=== PATIENT | male | born 2000 | race Hispanic/Latino ===

== ENCOUNTER 2022-12-05 16:53 | Inpatient (IN) | payer MEDICAID, SELFPAY ==
[~2022-12-05 16:53] MED LIST: Iopamidol-370 76% 500 ML MDV (1 ML CHARGE) ONE
[2022-12-05] MEDS ORDERED: Morphine 4 MG/ML VIAL ONE (17:19)
[2022-12-05] MEDS ORDERED: Ondansetron PF 4 MG/2 ML Vial ONE (17:19)
[2022-12-05 18:08] LABS: #Eosinphils 0.2 thou/uL (0.0-0.7); #Monocytes 0.7 thou/uL (0.11-0.59); #Neutrophils 8.6 thou/uL (1.40-6.50); %Basophils 0.4 % (0.0-1.0); %Eosinophils 1.6 % (0.0-10.0); %Lymphocytes 8.6 % (28.0-48.0); %Monocytes 6.9 % (0.0-4.0); %Neutrophils 81.6 % (31.0-61.0); Hematocrit 42.4 % (42.0-52.0); Hemoglobin 14.7 g/dL (14.0-18.0); Mean Corpuscular HGB CONC 34.7 g/dL (32.0-36.0); Mean Corpuscular Hemoglobin 30.8 pg (25.0-35.0); Mean Corpuscular Volume 88.9 fl (78.0-98.0); Mean Platelet Volume 9.5 fL (7.4-10.4); Platelet Count 318 10x3/uL (130-400); RBC Distribution Width 12.1 % (11.5-14.5); Red Blood Cell (RBC) Count 4.77 mill/uL (4.00-5.20); White Blood Cell (WBC) Count 10.6 10x3/uL (4.8-10.8)
[2022-12-05] MEDS ORDERED: Piperacillin/Tazobactam 4.5 GM VIAL ONE (18:11)
[2022-12-05] MEDS ORDERED: Ipratropium/Albuterol 3 ML NEB NEB PRN (18:29)
[2022-12-05] MEDS ORDERED: Ondansetron PF 4 MG/2 ML Vial IVP PRN (18:29)
[2022-12-05] MEDS ORDERED: Sodium Chloride 0.9% 1,000 ML IV SCH (18:30)
[2022-12-05 18:34] LABS: ALT (SGPT) 54 U/L (8-55); AST (SGOT) 32 U/L (5-34); Albumin 4.5 g/dL (3.5-5.0); Alkaline Phosphatase 109 U/L (50-130); Anion Gap 18 mmol/L (10-20); BUN (Urea Nitrogen) 12 mg/dL (8.9-20.6); Bilirubin, Total 0.8 mg/dL (0.2-1.2); Calc. Creatinine Clearance 0 mL/min (70-130); Calcium 9.9 mg/dL (7.8-10.44); Carbon Dioxide 24 mmol/L (22-29); Chloride 96 mmol/L (98-107); Estimated GFR 102; Globulin 4.1 g/dL (2.4-3.5); Glucose 85 mg/dL (70-105); Potassium 3.2 mmol/L (3.5-5.1); Protein, Total 8.6 g/dL (6.0-8.3); Sodium 135 mmol/L (136-145)
[2022-12-05] MEDS ORDERED: traMADol HCl 50 MG TAB PO PRN (18:34)
[2022-12-05 18:36] LABS: Bacteria/HPF None Seen HPF (None Seen); Bilirubin Negative (Negative); Blood, Urine Negative (Negative); CAUTI Indications for Culture Pelvic or flank pain; Clarity Clear (Clear); Glucose, Urine (Dipstick) 50 mg/dL (Negative); Ketone, Urine 80 mg/dL (Negative); Leukocyte Negative Leu/uL (Negative); Nitrite Negative (Negative); Protein, Urine (Dipstick) 30 mg/dL (Neg-Trace); RBC/HPF 0-3 HPF (0-3); Specific Gravity, Urine 1.048 (1.002-1.036); Squamous Epithelial 0-3 HPF (0-3); Urobilinogen Normal mg/dL (Less than 2)
[2022-12-05 18:37] LABS: Urine Culture Reflex No No
[2022-12-05] MEDS: Potassium Chloride 20 MEQ in Premix Bag 1 BAG IVPB SCH ×2 (20:33→23:31)
[2022-12-05] MEDS: Sodium Chloride 0.9% 1,000 ML IV SCH (20:33)
[2022-12-05] MEDS: Ketorolac Tromethamine 30 MG/ML VIAL IVP SCH (20:33)
[2022-12-05] MEDS: Famotidine/PF 20 mg/2ml Vial SLOW IVP SCH (20:34)
[2022-12-05 20:52] VITALS: BMI 29.8
[2022-12-05] MEDS: traMADol HCl 50 MG TAB PO SCH (23:36)
[2022-12-05] MEDS: Acetaminophen 500 MG TAB PO SCH (23:36)
[2022-12-05] MEDS: Piperacillin/Tazobactam 3.375 GM in Sodium Chloride 0.9% 100 ML IVPB SCH (23:36)
[2022-12-06] MEDS: Ketorolac Tromethamine 30 MG/ML VIAL IVP SCH ×4 (03:02→20:04)
[2022-12-06] MEDS: Acetaminophen 500 MG TAB PO SCH ×4 (05:13→23:35)
[2022-12-06] MEDS: traMADol HCl 50 MG TAB PO SCH ×4 (05:14→23:36)
[2022-12-06] MEDS: Piperacillin/Tazobactam 3.375 GM in Sodium Chloride 0.9% 100 ML IVPB SCH ×3 (05:36→21:25)
[2022-12-06 07:10] LABS: #Eosinphils 0.4 thou/uL (0.0-0.7); #Monocytes 0.6 thou/uL (0.11-0.59); #Neutrophils 5.6 thou/uL (1.40-6.50); %Basophils 0.5 % (0.0-1.0); %Eosinophils 4.5 % (0.0-10.0); %Lymphocytes 16.4 % (28.0-48.0); %Monocytes 7.7 % (0.0-4.0); %Neutrophils 69.5 % (31.0-61.0); Hematocrit 38.2 % (42.0-52.0); Hemoglobin 12.7 g/dL (14.0-18.0); Mean Corpuscular HGB CONC 33.2 g/dL (32.0-36.0); Mean Corpuscular Hemoglobin 30.7 pg (25.0-35.0); Mean Platelet Volume 9.4 fL (7.4-10.4); Platelet Count 295 10x3/uL (130-400); RBC Distribution Width 12.4 % (11.5-14.5); Red Blood Cell (RBC) Count 4.14 mill/uL (4.00-5.20)
[2022-12-06 07:25] LABS: Mean Corpuscular Volume 92.3 fl (78.0-98.0)
[2022-12-06 07:54] LABS: PTT 40.3 sec (22.9-36.1)
[2022-12-06 07:55] LABS: INR-International Normal Ratio 1.3; Prothrombin Time 16.3 sec (12.0-14.7)
[2022-12-06] MEDS: Famotidine/PF 20 mg/2ml Vial SLOW IVP SCH ×2 (09:16→20:03)
[2022-12-06] MEDS ORDERED: EPINEPHrine 1 MG/ML AMP ONE (11:52)
[2022-12-06] MEDS ORDERED: Bupivacaine 0.25% HCL 30 ML VIAL ONE (11:52)
[2022-12-06] MEDS ORDERED: SUGAMMADEX SODIUM 200 MG/2 ML VIAL ONE (12:02)
[2022-12-06] MEDS ORDERED: fentaNYL PF 100 MCG/2 ML SYRINGE ONE (12:02)
[2022-12-06] MEDS ORDERED: Sodium Chloride 0.9% 100 ML ONE (12:13)
[2022-12-06] MEDS ORDERED: Piperacillin/Tazobactam 3.375 GM VIAL ONE (12:13)
[2022-12-06] MEDS ORDERED: Rocuronium Bromide 10 MG/ML (10ML VIAL) ONE (12:27)
[2022-12-06] MEDS ORDERED: Succinylcholine 200 MG/10 ml SYRINGE FS ONE (12:27)
[2022-12-06] MEDS ORDERED: Lidocaine 1% PF 5 ML VIAL ONE (12:27)
[2022-12-06] MEDS ORDERED: PROPOFOL 200 MG/20 ML VIAL ONE (12:27)
[2022-12-06] MEDS ORDERED: Ketorolac Tromethamine 30 MG/ML VIAL ONE (12:27)
[2022-12-06] MEDS ORDERED: Ondansetron PF 4 MG/2 ML Vial ONE (12:27)
[2022-12-06] MEDS ORDERED: Dexamethasone 20 MG/5 ML VIAL ONE (12:27)
[2022-12-06] MEDS ORDERED: Meperidine HCl/PF 25 MG/ML VIAL SLOW IVP PRN (14:02)
[2022-12-06] MEDS ORDERED: HYDROmorphone 2 MG/ML VIAL SLOW IVP PRN (14:02)
[2022-12-06] MEDS ORDERED: Ondansetron HCl/PF 4 MG/2 ML Vial IVP PRN (14:02)
[2022-12-06] MEDS ORDERED: Promethazine HCl 25 MG/ML VIAL IM PRN (14:02)
[2022-12-06] MEDS ORDERED: fentaNYL 50 mcg/mL 1 mL Vial ONE (14:15)
[2022-12-06] MEDS: Morphine 2 MG/ML VIAL SLOW IVP PRN ×2 (14:57→20:04)
[2022-12-06] MEDS: Sodium Chloride 0.9% 1,000 ML IV SCH (15:01)
[2022-12-07] MEDS: Ketorolac Tromethamine 30 MG/ML VIAL IVP SCH ×4 (03:14→20:59)
[2022-12-07] MEDS: Acetaminophen 500 MG TAB PO SCH ×4 (05:04→23:30)
[2022-12-07] MEDS: Piperacillin/Tazobactam 3.375 GM in Sodium Chloride 0.9% 100 ML IVPB SCH ×3 (05:04→21:00)
[2022-12-07] MEDS: traMADol HCl 50 MG TAB PO SCH ×4 (05:04→23:31)
[2022-12-07] MEDS: Morphine 2 MG/ML VIAL SLOW IVP PRN (05:12)
[2022-12-07] MEDS: Famotidine/PF 20 mg/2ml Vial SLOW IVP SCH ×2 (08:45→21:00)
[2022-12-07 08:57] LABS: Hematocrit 41.2 % (42.0-52.0); Hemoglobin 13.8 g/dL (14.0-18.0); Mean Corpuscular HGB CONC 33.5 g/dL (32.0-36.0); Mean Corpuscular Hemoglobin 30.9 pg (25.0-35.0); Mean Corpuscular Volume 92.4 fl (78.0-98.0); Mean Platelet Volume 9.3 fL (7.4-10.4); Platelet Count 307 10x3/uL (130-400); RBC Distribution Width 12.7 % (11.5-14.5); Red Blood Cell (RBC) Count 4.46 mill/uL (4.00-5.20); White Blood Cell (WBC) Count 10.8 10x3/uL (4.8-10.8)
[2022-12-07 09:06] LABS: Delete Auto Diff?? YES; Manual Diff?? YES
[2022-12-07 09:27] LABS: Anion Gap 15 mmol/L (10-20); BUN (Urea Nitrogen) 8 mg/dL (8.9-20.6); Calc. Creatinine Clearance 158 mL/min (70-130); Calcium 9.3 mg/dL (7.8-10.44); Carbon Dioxide 25 mmol/L (22-29); Chloride 101 mmol/L (98-107); Estimated GFR 124; Glucose 87 mg/dL (70-105); Potassium 4.5 mmol/L (3.5-5.1); Sodium 136 mmol/L (136-145)
[2022-12-07 09:29] LABS: Band 19 % (5-11); CellaVision Operator ID LAB.GE; Lymphocytes 5 % (28-48); Metamyelocyte 1 % (0-0); Monocytes 4 % (0-4); Neutrophil 70 % (31-61); Platelet Adequacy Comment Platelets Normal; Polychromasia SLIGHT = 2-3 cells HPF (0-2); Total Cell Count 100; Vacuoles SLIGHT
[2022-12-08] MEDS: Ketorolac Tromethamine 30 MG/ML VIAL IVP SCH ×2 (02:09→08:41)
[2022-12-08] MEDS: traMADol HCl 50 MG TAB PO SCH ×2 (05:13→11:15)
[2022-12-08] MEDS: Acetaminophen 500 MG TAB PO SCH ×2 (05:13→11:15)
[2022-12-08] MEDS: Piperacillin/Tazobactam 3.375 GM in Sodium Chloride 0.9% 100 ML IVPB SCH (05:14)
[2022-12-08 08:16] VITALS: BP 116/73; TEMP 98
[2022-12-08] MEDS: Famotidine/PF 20 mg/2ml Vial SLOW IVP SCH (08:41)
== END 2022-12-08 11:23 | disposition home or self-care (01) | DRG 340 ==
LOC: ERS 16:53 → SURG A 18:29
PROVIDERS: ADMIT Surgery; ATTEND Surgery
PROC: 0DTJ4ZZ Resection of Appendix, Percutaneous Endoscopic Approach (ICD-10-PCS; principal; 2022-12-06)
PROC: 0W9G4ZZ Drainage of Peritoneal Cavity, Percutaneous Endoscopic Approach (ICD-10-PCS; 2022-12-06)
DX: K35.33 Acute appendicitis with perforation, localized peritonitis, and gangrene, with abscess (principal); I10 Essential (primary) hypertension; D64.9 Anemia, unspecified; F41.9 Anxiety disorder, unspecified
CPT/HCPCS: 36415; 74177; 80048; 80053; 81001; 83605; 85025; 85610; 85730; 87040; 88304; 96361; 96365; 96366; 96375; J0171; J1100; J1650; J1885; J2270; J2272; J2405; J2543; J2704; J3010; J3480; J3490; J7050; S0020; S0028

== ENCOUNTER 2022-12-20 09:39 | Inpatient (IN) | payer SELFPAY ==
[2022-12-20] MEDS ORDERED: Acetaminophen 500 MG TAB ONE (10:01)
[2022-12-20 10:14] LABS: #Basophils 0.1 thou/uL (0.0-0.2); #Monocytes 1.1 thou/uL (0.11-0.59); #Neutrophils 12.5 thou/uL (1.40-6.50); %Basophils 0.3 % (0.0-1.0); %Eosinophils 0.1 % (0.0-10.0); %Lymphocytes 10.1 % (28.0-48.0); %Monocytes 7.2 % (0.0-4.0); %Neutrophils 81.6 % (31.0-61.0); Hematocrit 38.7 % (42.0-52.0); Hemoglobin 12.7 g/dL (14.0-18.0); Mean Corpuscular HGB CONC 32.8 g/dL (32.0-36.0); Mean Corpuscular Hemoglobin 30.5 pg (25.0-35.0); Mean Platelet Volume 9.2 fL (7.4-10.4); Platelet Count 556 10x3/uL (130-400); RBC Distribution Width 12.6 % (11.5-14.5); Red Blood Cell (RBC) Count 4.16 mill/uL (4.00-5.20); White Blood Cell (WBC) Count 15.3 10x3/uL (4.8-10.8)
[2022-12-20] MEDS ORDERED: Vancomycin 1 GM/200 ML (FROZEN) BAG ONE (10:46)
[2022-12-20] MEDS ORDERED: Cefepime 2 GM VIAL ONE (10:46)
[2022-12-20 10:53] LABS: Bacteria/HPF None Seen HPF (None Seen); Bilirubin Negative (Negative); Blood, Urine Negative (Negative); CAUTI Indications for Culture Fever or rigors; Clarity Clear (Clear); Glucose, Urine (Dipstick) 30 mg/dL (Negative); Ketone, Urine Negative (Negative); Leukocyte Negative Leu/uL (Negative); Nitrite Negative (Negative); Protein, Urine (Dipstick) 20 mg/dL (Neg-Trace); RBC/HPF 0-3 HPF (0-3); Specific Gravity, Urine 1.036 (1.002-1.036); Squamous Epithelial None Seen HPF (0-3); Urobilinogen 3 mg/dL (Less than 2); WBC/HPF 0-3 HPF (0-3); pH, Urine 6.5 (5.0-9.0)
[2022-12-20 10:59] LABS: ALT (SGPT) 117 U/L (8-55); AST (SGOT) 50 U/L (5-34); Albumin 4.3 g/dL (3.5-5.0); Alkaline Phosphatase 190 U/L (50-130); Anion Gap 15 mmol/L (10-20); BUN (Urea Nitrogen) 12 mg/dL (8.9-20.6); Bilirubin, Total 0.9 mg/dL (0.2-1.2); Calc. Creatinine Clearance 0 mL/min (70-130); Calcium 9.9 mg/dL (7.8-10.44); Carbon Dioxide 27 mmol/L (22-29); Chloride 97 mmol/L (98-107); Estimated GFR 97; Globulin 4.5 g/dL (2.4-3.5); Glucose 108 mg/dL (70-105); Lipase 11 U/L (8-78); Potassium 3.7 mmol/L (3.5-5.1); Protein, Total 8.8 g/dL (6.0-8.3); Sodium 135 mmol/L (136-145)
[2022-12-20 11:07] LABS: Urine Culture Reflex No No
[2022-12-20] MEDS ORDERED: diphenhydrAMINE 50 MG/ML VIAL ONE (11:57)
[2022-12-20] MEDS ORDERED: traMADol HCl 50 MG TAB PO PRN (13:20)
[2022-12-20 16:00] VITALS: BMI 28.2
[2022-12-20] MEDS: Sodium Chloride 0.9% 1,000 ML IV SCH ×2 (16:45→22:29)
[2022-12-20] MEDS ORDERED: Morphine 4 MG/ML VIAL SLOW IVP PRN (17:14)
[2022-12-20] MEDS ORDERED: Morphine 2 MG/ML VIAL SLOW IVP PRN (17:14)
[2022-12-20] MEDS ORDERED: Piperacillin/Tazobactam 3.375 GM in Sodium Chloride 0.9% 100 ML IVPB SCH (18:00)
[2022-12-20] MEDS: Acetaminophen 325 MG TAB PO SCH (18:23)
[2022-12-20] MEDS: traMADol HCl 50 MG TAB PO SCH (18:24)
[2022-12-21] MEDS: Acetaminophen 325 MG TAB PO SCH ×4 (00:54→18:16)
[2022-12-21] MEDS: traMADol HCl 50 MG TAB PO SCH ×4 (00:54→18:17)
[2022-12-21] MEDS: Piperacillin/Tazobactam 3.375 GM in Sodium Chloride 0.9% 100 ML IVPB SCH ×2 (01:00→09:34)
[2022-12-21 05:55] LABS: #Eosinphils 0.1 thou/uL (0.0-0.7); #Monocytes 1.1 thou/uL (0.11-0.59); #Neutrophils 11.3 thou/uL (1.40-6.50); %Basophils 0.2 % (0.0-1.0); %Eosinophils 0.4 % (0.0-10.0); %Lymphocytes 10.3 % (28.0-48.0); %Monocytes 7.8 % (0.0-4.0); %Neutrophils 80.9 % (31.0-61.0); Hematocrit 36.7 % (42.0-52.0); Hemoglobin 11.9 g/dL (14.0-18.0); Mean Corpuscular HGB CONC 32.4 g/dL (32.0-36.0); Mean Corpuscular Hemoglobin 30.1 pg (25.0-35.0); Mean Corpuscular Volume 92.9 fl (78.0-98.0); Platelet Count 464 10x3/uL (130-400); RBC Distribution Width 12.6 % (11.5-14.5); Red Blood Cell (RBC) Count 3.95 mill/uL (4.00-5.20)
[2022-12-21 06:34] LABS: Anion Gap 14 mmol/L (10-20); BUN (Urea Nitrogen) 6 mg/dL (8.9-20.6); Calc. Creatinine Clearance 139 mL/min (70-130); Calcium 9.6 mg/dL (7.8-10.44); Carbon Dioxide 26 mmol/L (22-29); Chloride 103 mmol/L (98-107); Estimated GFR 113; Glucose 89 mg/dL (70-105); Potassium 4.4 mmol/L (3.5-5.1); Sodium 139 mmol/L (136-145)
[2022-12-21] MEDS ORDERED: Ciprofloxacin 500 MG TAB PO SCH (11:15)
[2022-12-21] MEDS: metroNIDAZOLE 500 MG TAB PO SCH ×2 (15:12→20:45)
[2022-12-21] MEDS: Ciprofloxacin 500 MG TAB PO SCH (20:45)
[2022-12-22] MEDS: Acetaminophen 325 MG TAB PO SCH ×3 (00:12→12:49)
[2022-12-22] MEDS: traMADol HCl 50 MG TAB PO SCH ×3 (00:12→12:49)
[2022-12-22] MEDS: metroNIDAZOLE 500 MG TAB PO SCH (08:33)
[2022-12-22] MEDS: Ciprofloxacin 500 MG TAB PO SCH (08:33)
[2022-12-22 09:36] LABS: #Eosinphils 0.1 thou/uL (0.0-0.7); #Monocytes 0.6 thou/uL (0.11-0.59); #Neutrophils 10.6 thou/uL (1.40-6.50); %Basophils 0.2 % (0.0-1.0); %Eosinophils 0.6 % (0.0-10.0); %Lymphocytes 8.5 % (28.0-48.0); %Monocytes 4.6 % (0.0-4.0); %Neutrophils 85.5 % (31.0-61.0); Hematocrit 36.8 % (42.0-52.0); Mean Corpuscular HGB CONC 32.6 g/dL (32.0-36.0); Mean Corpuscular Hemoglobin 30.3 pg (25.0-35.0); Mean Corpuscular Volume 92.9 fl (78.0-98.0); Mean Platelet Volume 9.1 fL (7.4-10.4); Platelet Count 508 10x3/uL (130-400); RBC Distribution Width 12.7 % (11.5-14.5); Red Blood Cell (RBC) Count 3.96 mill/uL (4.00-5.20); White Blood Cell (WBC) Count 12.4 10x3/uL (4.8-10.8)
[2022-12-22 12:28] VITALS: BP 120/77; TEMP 97.9
== END 2022-12-22 13:45 | disposition home or self-care (01) | DRG 862 ==
LOC: ERS 09:39 → ERHOLD 12:29 → SURG B 15:39
PROVIDERS: ADMIT Surgery; ATTEND Surgery
DX: T81.43XA Infection following a procedure, organ and space surgical site, initial encounter (principal); A41.9 Sepsis, unspecified organism; K65.1 Peritoneal abscess; I10 Essential (primary) hypertension; Y83.8 Other surgical procedures as the cause of abnormal reaction of the patient, or of later complication, without mention of misadventure at the time of the procedure; Z88.1 Allergy status to other antibiotic agents; Z90.49 Acquired absence of other specified parts of digestive tract
CPT/HCPCS: 36415; 71045; 74177; 80048; 80053; 81001; 83605; 83690; 85025; 87040; 87086; 96361; 96365; 96367; 96375; J0692; J1200; J2543; J3370-JW; J3490; J7050